=== PATIENT | female | born 1960 | race Caucasian/White ===

== ENCOUNTER 2020-01-26 16:57 | Inpatient (IN) | payer MEDICAID, OTHER ==
[2020-01-27 03:36] VITALS: BP 120/68
[2020-01-27] MEDS ORDERED: Maalox 30 mL Cup PO PRN (03:40)
[2020-01-27] MEDS ORDERED: Magnesium Hydroxide (MOM) 30 mL UDC PO PRN (03:40)
[2020-01-27] MEDS: Multivitamin Tab PO SCH (08:30)
--- NOTE | 2020-01-27 14:09 | History and Physical ---
History of Present Illness - HPI Chief Complaint: Acute Psychosis HPI: * Presented to [facility] for AMS * Transferred to [facility] for Acute Psychosis Vital Signs: Last Vital Signs Temp 97.1 F 01/27/20 05:56 Pulse 70 01/27/20 05:56 Resp 20 01/27/20 07:49 BP 108/62 01/27/20 05:56 Pulse Ox 98 01/27/20 05:56 Past Medical History Psych: Report: Psychosis Social History Smoke: # pack years (Unknown) Alcohol: Other (Unknown) Drugs: Other (Unknown) Lives: Other (Unknown) - Allergies Allergies/Adverse Reactions: Allergies Allergy/AdvReac Type Severity Reaction Status Date / Time No Known Allergies Allergy Verified 01/27/20 04:49 Review of Systems - Review of Systems Constitutional: Report: No Significant Eyes: Report: No Significant ENT: Report: No Significant Respiratory: Report: No Significant Cardiovascular: Report: No Significant Gastrointestinal: Report: No Significant Genitourinary: Report: No Significant Musculoskeletal: Report: No Significant Skin: Report: No Significant Neurological: Report: No Significant Physical Exam - Physical Exam HEENT: Report: Ears Nose Throat within normal limits, Pharnyx within normal limits Neck: Report: Within normal limits Cardiovascular Systems: Report: Regular, Rate and Rhythm, no murmurs noted Respiratory: Report: Clear to Auscultation of lung curry, Breath Sounds are within normal limits Abdomen: Report: Non-tender to palpation, Bowel Sounds are within normal limits Back: Report: Inspection of back is within normal limits. Extremities: Report: Non-tender to palpation., Patient had full range of motion , No pedal edema was noted on inspection Skin: Report: Color of skin is within normal limits, Warm, Dry, No Rashes noted of the skin Neuro/Psych: Report: CN II-XII intact, No motor deficit - Assessment Assessment: * Acute Psychosis * Selective Mutism * Abnormal CXR - Plan Plan: * Admitted to [facility] at [facility] * Psychiatry Consult * Obtain labs on Wednesday * Further per consults Cranial Nerve Assessment - CRANIAL NERVES alcohol swab:: Yes Distinguishes movements in peripheral field.:: Yes up, down, sideways:: Yes on forehead, cheeks and chin, chews symmetrically:: Yes FACIAL VII: upper: Frowns Symmetrically:: Yes FACIAL VII: Lower: Smiles Symmetrically:: Yes both ears:: Yes GLOSS-PHARYNGEAL IX: Has gag reflex:: Yes VAGUS X: Can make guttural sounds:: Yes ACCESSORY XI: Shrugs shoulders symmetrically:: Yes tremors or fasciculation's:: Yes - MOTOR spasticity, cogwheel, atrophy, tremor, asterixis, other: Yes - COORDINATION Finger to nose, heel to franz, LAILA, gait, Romberg: Yes - SENSORY signs, Brudzinski, Kernig, neck rigidity:: Yes - REFLEXES Brachioradials Right:: Yes Brachioradials Left:: Yes Biceps Right:: Yes Biceps Left:: Yes Triceps Right:: Yes Triceps Left:: Yes Knee Right:: Yes Knee Left:: Yes Ankle Right:: Yes Ankle Left:: Yes Babinski Right:: No Babinski Left:: No
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
[2020-01-28] MEDS: Multivitamin Tab PO SCH (08:21)
--- NOTE | 2020-01-28 17:39 | Progress Notes ---
DATE: SUBJECTIVE: The patient was seen and chart reviewed, and discussed with staff. The patient continues to be very disorganized, confused and unable to answer questions in a coherent manner, continues to make nonsensical statements such as other people stealing her body parts and her baby. She has, however, been compliant with medications, denying any side effects. PLAN: The patient continues to be very psychotic and confused, so that she will require inpatient care center and treatment. We will monitor the patient on a daily basis for response to medications and titrate. JOB# [id number]
[2020-01-29] MEDS: Multivitamin Tab PO SCH (08:25)
--- NOTE | 2020-01-29 14:13 | Internal Medicine Prog Note ---
Internal Medicine Subjective - Subjective Service Date: 01/29/20 Patient seen and examined:: without staff Patient is:: awake Per staff patient has:: no adverse event, no episodes of fall Internal Medicine Objective - Physical Exam Vitals and I&O: Vital Signs Temp 97.0 F 01/29/20 05:51 Pulse 71 01/29/20 05:51 Resp 18 01/29/20 05:51 BP 114/65 01/29/20 05:51 Pulse Ox 97 01/29/20 05:51 Intake & Output 01/28/20 01/29/20 01/29/20 18:59 06:59 18:59 Intake Total 800 300 Balance 800 300 Intake: Oral 800 300 Other: # Voids 3 1 # Bowel Movements 0 0 Active Medications: Current Medications Acetaminophen (Tylenol) 650 mg PO Q4H PRN PRN Reason: Pain (Mild 1-3) Stop: 03/27/20 03:39 Al Hydrox/Mg Hydrox/Simethicone (Maalox) 30 ml PO Q4HR PRN PRN Reason: GI DISTRESS Stop: 03/27/20 03:39 Aripiprazole (Abilify) 5 mg PO DAILY GASPER; Protocol Stop: 03/30/20 08:59 Magnesium Hydroxide (Milk Of Magnesia) 30 ml PO HS PRN PRN Reason: Constipation Multivitamins/Vitamin C (Theragran) 1 tab PO DAILY GASPER Stop: 03/27/20 08:59 Last Admin: 01/29/20 08:25 Dose: 1 tab Zolpidem Tartrate (Ambien) 5 mg PO HS PRN PRN Reason: Insomnia Stop: 03/27/20 03:39 General: weak HEENT: NC/AT Neck: Supple Internal Medicine Assmt/Plan - Assessment Assessment: 1. Acute psychosis - Plan Plan: check labs cbc, cmp, tsh
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
[2020-01-30 08:14] LABS: A1C 5.6 % (4.8-5.6)
[2020-01-30] MEDS: Multivitamin Tab PO SCH (08:22)
[2020-01-30 11:15] LABS: CHOLESTEROL 211 mg/dL (<200); TRIGLYCERIDES 145 mg/dL (30-150)
[2020-01-30 11:16] LABS: LDL CHOLESTEROL 146 mg/dL (0-129)
[2020-01-30 17:38] LABS: HEMATOCRIT 41.6 % (36-48); HEMOGLOBIN 13.6 g/dL (12.0-16.0); MEAN CORPUSCULAR HEMOGLOBIN 31 pg (27-31); MEAN CORPUSCULAR VOLUME 95 fL (79.0-98.0); RED BLOOD COUNT 4.37 MIL/uL (4.2-6.2); WHITE BLOOD COUNT 5.8 K/uL (4.8-10.8)
[2020-01-30 17:39] LABS: % NEUTROPHILS 61.9 % (40-70); BASOPHILS % (AUTO) 0.9 % (0.0-2.0); EOSINOPHILS % (AUTO) 4.2 % (0-4); LYMPHOCYTES % (AUTO) 25.8 % (20.5-51.5); MEAN CORPUSCULAR HGB CONC 33 % (32-36); MONOCYTES % (AUTO) 7.2 % (1.7-9.3); PLATELET COUNT 213 K/uL (130-430); RED CELL DISTRIBUTION WIDTH 13.5 % (9.0-15.0)
[2020-01-30 17:40] LABS: BASOPHILS # (AUTO) 0.1 K/uL (0.0-0.2); EOSINOPHILS # (AUTO) 0.2 K/uL (0.0-0.4); LYMPHOCYTES # (AUTO) 1.5 K/uL (1.0-5.5); MONOCYTES # (AUTO) 0.4 K/uL (0.0-1.0); NEUTROPHILS # (AUTO) 3.6 K/uL (1.8-7.7)
--- NOTE | 2020-01-30 20:18 | Progress Notes ---
DATE: 01/30/2020 SUBJECTIVE: Case was discussed with staff of the patient, reviewed records. The patient continues to be psychotic. She reported that she has many children that She believes somebody killed her son. She continues to be a poor historian, unable to tell me the date, where she is, why she is here. Continues to be unable to make safe plan for self-care. No side effects with the medication, no sedation, no nausea, no extrapyramidal symptoms. The patient reports she was hospitalized many times, unable to tell me why. She is still a poor historian. Today, she is not concerned about her son being killed. Unable to tell me how many children she will have, still acting bizarre, erratic. Denies substance abuse; however, she is not a reliable historian and we will continue outpatient group therapy, milieu therapy, and adjust medication as needed. JOB# [id number] NATALY
[2020-01-31] MEDS: Multivitamin Tab PO SCH (08:21)
--- NOTE | 2020-01-31 11:22 | Progress Notes ---
DATE: 01/31/2020 Case was discussed with staff of the patient, reviewed records. The patient continues to be confused. She believes her son got killed and he is being killed twice and I asked her how could this happen, she said, "yah, they do come back and get killed again." She is still delusional, psychotic, continues to have poor insight, unable to make safe plan for self-care. I increased her Abilify to 10 mg, planning to keep increasing it till her psychotic symptoms improved. She stays in her room, unable to give much information, unable to tell me the date. She is not sure why she is here ,she thinks her son got killed few days ago by a black man and that he was killed before and he is a baby, very poor insight. No side effects with the medication, no sedation, no nausea, no extrapyramidal symptoms. I will continue outpatient group therapy, milieu therapy, and adjust medications as needed. JOB# [id number] [facility]
[2020-02-01] MEDS: Multivitamin Tab PO SCH (08:30)
--- NOTE | 2020-02-01 20:44 | Progress Notes ---
DATE: 02/01/2020 Case was discussed with staff of the patient, reviewed records. The patient continues to be psychotic, continues to be delusional, unable to make safe plan for self-care. Continues to believe that her son got killed again, continues to be unable to state a safe plan for self-care, unable to give appropriate information, though appropriate history, unpredictable, impulsive, needing redirection. No side effects with the medication, no sedation, no nausea, no extrapyramidal symptoms. We will continue to work with the patient in group therapy, milieu therapy and adjust the medication as needed. JOB# [id number]
[2020-02-02] MEDS: Multivitamin Tab PO SCH (09:06)
--- NOTE | 2020-02-02 21:58 | Progress Notes ---
DATE: 02/02/2020 Case was discussed with staff of the patient, reviewed records. The patient continues to be psychotic, continues to have no memory of what happened. She believes she passed out. She still believes that her son got killed and he is being killed twice, continues to be delusional, paranoid, continues to be unable to make safe plan for self-care. No side effects with the medication, no sedation, no nausea, no extrapyramidal symptoms. Continues to be at risk for discharge because of her continued psychotic symptoms, confusion and I will be adding Cogentin to her medication just in case she develops any extrapyramidal symptoms. We will continue outpatient group therapy, milieu therapy, adjust medication as needed. [facility]# [id number]
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
[2020-02-03] MEDS: Multivitamin Tab PO SCH (08:35)
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
[2020-02-04] MEDS: Multivitamin Tab PO SCH (08:24)
[2020-02-05] MEDS: Multivitamin Tab PO SCH (08:18)
--- NOTE | 2020-02-05 20:30 | Progress Notes ---
DATE: 02/05/2020 Case was discussed with staff of the patient, reviewed records. The patient has shown progress in that she does not talk about her son getting killed. She is able to tell me the date. Sleeping better, eating better. Now, she tells me she lives with her son. Continues to have negative thoughts, intrusive thoughts, more engaged. The patient was changed to Risperdal by Dr. Hogue with no side effects, no sedation, no nausea, no extrapyramidal symptoms. Also initiated on [place]. We will continue outpatient group therapy, milieu therapy, adjust medication as needed. JOB# [id number]
[2020-02-06] MEDS: Multivitamin Tab PO SCH (09:53)
--- NOTE | 2020-02-06 13:12 | Progress Notes ---
DATE: Case was discussed with staff of the patient, reviewed records. The patient is doing much better now. She is more alert. She is able to tell me the day. She realize that she has been not doing well, as she stopped taking her medication. She became homeless. She is back on lithium and Risperdal. She says this medication worked for her. She is denying any current intent to harm herself or anyone. She denies any auditory or visual hallucinations, paranoia. No side effects with the medications, no sedation, no nausea, no extrapyramidal symptoms. She reports that she can go with her son and I asked the staff to verify with her son and will continue outpatient group therapy, milieu therapy, adjust medication as needed. JOB# [id number]
[2020-02-07] MEDS: Multivitamin Tab PO SCH (08:20)
--- NOTE | 2020-02-07 15:00 | Progress Notes ---
DATE: 02/07/2020 FOLLOWUP PROGRESS NOTE Case was discussed with staff of the patient, reviewed records. The patient today is able to get better information. She reports she has long history of mental illness, cannot remember how long, she said that she has been hospitalized at least 3 times. She is not sure how long this has been going on. She reports that she never tried to harm herself in the past. She reports that her son is willing to have her go and live with him and the staff will be verifying that. She is sleeping better, eating better. No side effects with the medications, no sedation, no nausea, no extrapyramidal symptoms and we will be checking her lithium level. We will continue outpatient group therapy, milieu therapy, adjust the medication as needed. JOB# [id number]
[2020-02-08] MEDS: Multivitamin Tab PO SCH (08:15)
--- NOTE | 2020-02-08 12:23 | Progress Notes ---
DATE: 02/08/2020 Case was discussed with staff of the patient, reviewed records. The patient apparently reported that she can go with her son; however, apparently she gave them a number that does not work. She said that is for the neighbors, but she was not sure of it, the staff is trying to work discharge plan. No side effects with the medication. She continues to be somewhat delusional and paranoid. Her lithium level is 0.01, 0.09, which is within acceptable range. No side effects with the medication, no sedation, no nausea, no extrapyramidal symptoms. We will continue outpatient group therapy, milieu therapy, and adjust medications as needed. JOB# [id number] [facility]
[2020-02-09] MEDS: Multivitamin Tab PO SCH (08:44)
--- NOTE | 2020-02-09 20:42 | Progress Notes ---
DATE: 02/09/2020 Case was discussed with staff of the patient, reviewed records. The patient reports She is doing better, sleeping well, eating well. Working on discharge plan. She denies any current intent to harm himself or anyone. She is happy with her medication with no side effects, no sedation, no nausea, no extrapyramidal symptoms. She reports her son would be happy to take her back. We will continue outpatient group therapy, milieu therapy, and adjust medications as needed. JOB# [id number] NATALY
[2020-02-10] MEDS: Multivitamin Tab PO SCH (08:58)
--- NOTE | 2020-02-10 21:32 | Progress Notes ---
DATE: 02/10/2020 SUBJECTIVE: The patient was seen and evaluated. The patient's chart reviewed. Covering for Dr. Thakkar. A 59-year-old female who initially presented here crying hysterically, disorganized. HOSPITAL COURSE: The patient continues to be disorganized, isolative, withdrawn. She reports no side effects of the medications. She reports that she is feeling better with the current medication regimen. No complication. No side effects. MENTAL STATUS EXAMINATION: Although, withdrawn, disengaged. No SI. ASSESSMENT AND PLAN: Stabilizing with the current medication regimen. We will continue working very closely with mental rn case management for safe disposition. She is currently on lithium, benztropine, risperidone. JOB# [id number]
[2020-02-11] MEDS: Multivitamin Tab PO SCH (08:29)
[2020-02-12] MEDS: Multivitamin Tab PO SCH (08:09)
--- NOTE | 2020-02-12 10:53 | Progress Notes ---
DATE: 02/12/2020 Case was discussed with staff of the patient, reviewed records. The patient showing progress. She realized what happened. She felt she was not herself. She was thinking about her son who got killed long time ago. She was delusional upon admission. Continues to be somewhat isolative and withdrawn. No side effects with the medication, no sedation, no nausea. Actually, she is doing much better now and when we are working in the process of getting discharged to her son; however, the staff is working on it. No side effects with the medication, no sedation, no nausea, no extrapyramidal symptoms. She is doing much better in general, responding very well to the medication and hopefully if we can get her to even she is ready to go to a lesser level of care with staff is working and trying to verify it and meanwhile we will continue outpatient group therapy, milieu therapy, adjust medication as needed. JOB# [id number]
[2020-02-13] MEDS: Multivitamin Tab PO SCH (08:20)
--- NOTE | 2020-02-13 14:46 | Discharge Summary ---
DATE OF DISCHARGE: 02/13/2020 IDENTIFYING INFORMATION: The patient is a 59-year-old female. HISTORY OF PRESENT ILLNESS: The patient was admitted and presented on a hold for grave disability. The patient was not making any sense, was crying hysterically and rambling, not making sense. She believes her son was killed. The patient was not making any sense. I talked to her many times and finally I put her on Abilify, but later apparently she told one of the psychiatrists she used to be on Risperdal and lithium though I asked her this question before she was unable to answer. She was started on Risperdal and lithium and after taking it gradually she started feeling better. She was sleeping well, eating well. She was on lithium 300 mg twice a day, Cogentin 0.5 mg twice a day as well as Risperdal 1 mg twice a day. The patient's lithium level was 1.09. The patient's lipid profile was high cholesterol. The patient primary care physician. The patient is able to take care of herself and function well. The patient apparently with a history of schizophrenia. CONDITION ON DISCHARGE: The patient is able to take care of herself. The patient is able to take care of her ADLs and function well socially. The patient will be going with her son. FINAL DIAGNOSES: Schizoaffective disorder, bipolar type. As per medical doctor, the patient will follow up with psychiatrist and primary care physician and a therapist. EXPECTED OUTCOME: Stable if the patient complies with the above. [facility]# [id number]
== END 2020-02-13 14:30 | disposition home or self-care (01) | DRG 885 ==
LOC: GERO 21:40
PROVIDERS: ADMIT Psychiatry & Neurology Psychiatry; ATTEND Psychiatry & Neurology Psychiatry
DX: F25.0 Schizoaffective disorder, bipolar type (principal); F23 Brief psychotic disorder; F94.0 Selective mutism; R91.8 Other nonspecific abnormal finding of lung field
CPT/HCPCS: 36415-UA; 80061-TC; 80178-TC; 83036-90; 84443-TC; 85025-TC; G0410; Z7610